=== PATIENT | male | born 1960 | race Caucasian/White ===

== ENCOUNTER 2020-01-12 13:00 | Day surgery (SDC) | payer BC ==
[~2020-01-12 13:00] MED LIST: NO HOME MEDS
[2020-01-12] MEDS ORDERED: LIDOcaine 1%/PF 5ML 10 MG/ML VIAL ONE (13:37)
== END 2020-01-12 14:19 | disposition home or self-care (01) ==
LOC: WOUND CARE 13:00
PROVIDERS: ATTEND Nurse Practitioner
DX: S91.021 Laceration with foreign body, right ankle (principal); W45.8XXD Other foreign body or object entering through skin, subsequent encounter; W22.8XXD Striking against or struck by other objects, subsequent encounter; Y92.017 Garden or yard in single-family (private) house as the place of occurrence of the external cause; E11.9 Type 2 diabetes mellitus without complications; I10 Essential (primary) hypertension
CPT/HCPCS: 10120; 82948

== ENCOUNTER 2020-01-16 10:40 | Outpatient (CLI) | payer BC ==
[2020-01-16] MEDS ORDERED: LIDOcaine 2% 5ml jelly ONE (11:00)
== END 2020-01-16 11:39 | disposition home or self-care (01) ==
LOC: EDSTATUS 10:40 → WOUND CARE 10:40
PROVIDERS: ATTEND Nurse Practitioner
DX: S91.001D Unspecified open wound, right ankle, subsequent encounter (principal); S80.851D Superficial foreign body, right lower leg, subsequent encounter; E11.9 Type 2 diabetes mellitus without complications; M19.90 Unspecified osteoarthritis, unspecified site; Z86.14 Personal history of Methicillin resistant Staphylococcus aureus infection; X58.XXXD Exposure to other specified factors, subsequent encounter
CPT/HCPCS: 36416; 82948; G0463

== ENCOUNTER 2020-01-23 13:54 | Day surgery (SDC) | payer BC | END 2020-01-23 14:49 | disposition home or self-care (01) | LOC: WOUND CARE 13:54 | PROVIDERS: ATTEND Nurse Practitioner | DX: S91.001D Unspecified open wound, right ankle, subsequent encounter (principal); E11.622 Type 2 diabetes mellitus with other skin ulcer; L97.811 Non-pressure chronic ulcer of other part of right lower leg limited to breakdown of skin; M19.90 Unspecified osteoarthritis, unspecified site; Z86.14 Personal history of Methicillin resistant Staphylococcus aureus infection; X58.XXXD Exposure to other specified factors, subsequent encounter | CPT/HCPCS: 82948; G0463 ==

== ENCOUNTER 2020-01-30 13:45 | Outpatient (CLI) | payer BC ==
[2020-01-30] MEDS ORDERED: LIDOcaine 2% 5ml jelly ONE (13:53)
== END 2020-01-30 14:14 | disposition home or self-care (01) ==
LOC: WOUND CARE 13:45 → EDSTATUS 14:00 → WOUND CARE 14:14
PROVIDERS: ATTEND Nurse Practitioner
DX: S91.001D Unspecified open wound, right ankle, subsequent encounter (principal); E11.622 Type 2 diabetes mellitus with other skin ulcer; L97.811 Non-pressure chronic ulcer of other part of right lower leg limited to breakdown of skin; M19.90 Unspecified osteoarthritis, unspecified site; Z86.14 Personal history of Methicillin resistant Staphylococcus aureus infection; X58.XXXD Exposure to other specified factors, subsequent encounter
CPT/HCPCS: 36416; G0463